=== PATIENT | male | born 1945 | race Caucasian/White ===

== ENCOUNTER 2017-02-25 15:19 | Emergency (ER) | payer MEDICARE, OTHER ==
[2017-02-25 17:30] LABS: ALBUMIN 4.3 g/dL (3.4-4.8); BILIRUBIN - TOTAL 0.4 mg/dL (0.1-1.0); CREATININE 1.2 mg/dL (0.7-1.2); GLOBULIN (CALCULATION) 2.3 g/dL (2.2-4.2); POTASSIUM 3.6 mmol/L (3.5-5.1); TOTAL PROTEIN 6.6 g/dL (6.4-8.3)
[2017-02-25 17:43] LABS: BILIRUBIN NEGATIVE (NEGATIVE); BLOOD NEGATIVE Ery/uL (NEGATIVE); CLARITY CLEAR (CLEAR); COLOR YELLOW (YELLOW); GLUCOSE (U) NORMAL (NORMAL); KETONE (U) NEGATIVE (NEGATIVE); LEUKOCYTES NEGATIVE Leu/uL (NEGATIVE); NITRITE NEGATIVE (NEGATIVE); PROTEIN NEGATIVE (NEGATIVE); UROBILINOGEN 0.2 mg/dL (0.2-1.0)
== END 2017-02-25 20:34 | disposition home or self-care (01) ==
LOC: FER 15:19
PROVIDERS: Emergency Medicine
DX: T67.5XXA Heat exhaustion, unspecified, initial encounter (principal); I10 Essential (primary) hypertension; E03.9 Hypothyroidism, unspecified; E78.5 Hyperlipidemia, unspecified; Z87.442 Personal history of urinary calculi; Z79.899 Other long term (current) drug therapy; X30.XXXA Exposure to excessive natural heat, initial encounter
CPT/HCPCS: 36415; 71010; 80053; 81003; 84484; 93005

== ENCOUNTER 2021-11-03 12:15 | Emergency (ER) | payer MEDICARE, OTHER ==
[~2021-11-03 12:15] MED LIST: ASPIR 8181 MG PO; ATORVASTATIN CA40 MG PO; CENTRUM SILVER1 EAC1 PO; FLONASE ALLER15.8 ML; LOSARTAN-HCTZ1 EAC1 PO; METOPROLOL SUCC50 MG PO; NITROQUIK SL0.4 MG SL; NORCO 5-325 TA1 EACH PO; NORVASC5 MG PO; PLAVIX75 MG PO; PRILOSEC20 MG PO; SUDAFED30 MG PO; SYNTHROID50 MCG PO; VIBRAMYCIN100 MG PO
== END 2021-11-03 13:10 | disposition home or self-care (01) ==
LOC: FER 12:15
DX: K40.90 Unilateral inguinal hernia, without obstruction or gangrene, not specified as recurrent (principal); I10 Essential (primary) hypertension; Z88.5 Allergy status to narcotic agent
CPT/HCPCS: 99283

== ENCOUNTER → 2021-11-20 | Day surgery (SDC) | payer MEDICARE, OTHER ==
[~2021-11-20] VITALS: Ht 177.8 cm; Wt 106.6 kg
[~2021-11-20] MED LIST changes: +ACETAMINOPHEN500 M1 PO; +COLACE100 MG PO; +FINASTERIDE PO; +FLOMAX0.4 MG PO; +MOTRIN600 MG PO; +OXY-IR 5MG5 MG PO; +VITAMIN B122500 MCG PO; +VITAMIN D350 MC3 PO; +ZETIA10 MG PO
[2021-11-20 07:12] LABS: INR 1.03 (0.9-1.2); PROTHROMBIN TIME 12.9 SECONDS (11.8-13.4); PTT 26.6 SECONDS (24.4-34.7)
[2021-11-20 07:23] LABS: BUN/CREAT RATIO (CALC) 17.2 RATIO; CREATININE 0.99 mg/dL (0.67-1.17)
== END | disposition home or self-care (01) ==
LOC: FAS 06:10
PROVIDERS: Student in an Organized Health Care Education/Training Program
DX: K40.90 Unilateral inguinal hernia, without obstruction or gangrene, not specified as recurrent (principal); K21.9 Gastro-esophageal reflux disease without esophagitis; I10 Essential (primary) hypertension; R00.1 Bradycardia, unspecified; E78.00 Pure hypercholesterolemia, unspecified; Z88.5 Allergy status to narcotic agent; Z79.82 Long term (current) use of aspirin; Z96.652 Presence of left artificial knee joint; Z96.619 Presence of unspecified artificial shoulder joint; Z87.891 Personal history of nicotine dependence
CPT/HCPCS: 36415; 80048; 85610; 85730; 93005; J0690; J1100; J1644; J2250; J2405; J2704; J3010; J7120